=== PATIENT | female | born 1985 | race African-American/Black ===

== ENCOUNTER 2017-10-03 22:37 | Emergency (ER) | payer SELFPAY ==
[~2017-10-03] VITALS: Ht 165.1 cm; Wt 145.6 kg
[~2017-10-03 22:37] MED LIST: CEPH-460 PO; FERR325T18 PO; HYDR-4107 PO; PERC5TAB12 PO; POTASOL PO
[2017-10-03 23:23] VITALS: BP 162/100; PULSE 94; RESP 18; TEMP 98.9; O2SAT 97
--- NOTE | 2017-10-03 23:37 | PD ---
HPI Chief Complaint: Complaint Time Seen by Provider: 23:31 Travel History International Travel<30 days: No Contact w/Intl Traveler<30days: No Traveled to known affect area: No History of Present Illness HPI 32-year-old female presents to the emergency department for complaint of flank pain and suprapubic pressure with decreased urine output. Patient has history of recurrent kidney stones requiring stent placement and reportedly saw her urologist located in [place] on Monday and had bilateral stents placed but reports that both of the stents fell out and home. Patient reportedly contacted her urologist who encouraged her to come to the emergency department. Patient reportedly is scheduled to have surgery on Monday in [place] but was told that as long as she has a urine infection she cannot have the urological procedural intervention. No reported fever and chills. No report of nausea or vomiting. Patient has had dysuria and decreased urine output. No report of hematuria. Patient's last period was April 2015. Patient denies . Patient reports she has a very complicated extensive history related to recurrent kidney stones with complications from urinary stents requiring hospitalization for sepsis subsequent complication with PE and bilateral pneumothoraces. Patient's last diagnosis of PE was in 2012 and she takes no blood thinning agents at this time. Patient reports last dose of pain medication yesterday, hydrocodone. PFSH Past Medical History Narrative Medical Kidney stones UTI urosepsis pneumothorax PE recurrent ureteral stents D&C ovarian; no tobacco use; nursing notes reviewed Anemia: Yes Diminished Hearing: No Deep Vein Thrombosis: Yes (with pulmonary embolism) Kidney Stones: Yes Respiratory: Yes (BILATERAL LUNG COLLAPSE) Ovarian Cysts: Yes Dilation and Curettage (D&C): Yes Past Surgical History Gynecologic Surgery: Yes (HX: OVARIAN CYSTS, UTERINE POLYS) Other Surgery: Yes (bilateral ureteral stents; lithotripsy) Social History Alcohol Use: No Tobacco Use: No Substance Use: No Allergies-Medications (Allergen,Severity, Reaction): Coded Allergies: morphine (Verified Allergy, Intermediate, HIVES, 09/26/17) diclofenac (Unverified Allergy, Unknown, 06/18/17) Renal dysfunction etodolac (Unverified Allergy, Unknown, 06/18/17) Renal dysfunction flurbiprofen (Unverified Allergy, Unknown, 06/18/17) Renal dysfunction ibuprofen (Unverified Allergy, Unknown, 06/18/17) Renal dysfunction indomethacin (Unverified Allergy, Unknown, 06/18/17) Renal dysfunction ketoprofen (Unverified Allergy, Unknown, 06/18/17) Renal dysfunction ketorolac (Unverified Allergy, Unknown, 06/18/17) Renal dysfunction naproxen (Unverified Allergy, Unknown, 06/18/17) Renal dysfunction oxaprozin (Unverified Allergy, Unknown, 06/18/17) Renal dysfunction tramadol (Unverified Allergy, Unknown, Renal dysfunction, 06/18/17) Reported Meds & Prescriptions Reported Meds & Active Scripts Active Reported Ferrous Sulfate 325 Mg (65 Mg Iron) Tablet 325 Mg PO DAILY Potassium Citrate-Citric Acid 1,100-334 Mg/5 Ml Soln 15 Ml PO DAILY Review of Systems Except as stated in HPI: all other systems reviewed are Neg General / Constitutional: No: Fever, Chills HENT: No: Congestion Cardiovascular: No: Chest Pain or Discomfort Respiratory: No: Shortness of Breath Gastrointestinal: Positive: Nausea, No: Abdominal Pain Genitourinary: Positive: Dysuria, Flank Pain Musculoskeletal: No: Myalgias, Arthralgias Skin: No Rash Neurologic: No: Weakness Hematologic/Lymphatic: No: Lymph Node Enlargement Physical Exam Narrative GENERAL: Well-developed well-nourished obese female in no acute distress or respiratory distress SKIN: Warm and dry. HEAD: Normocephalic. EYES: No scleral icterus. No injection or drainage. NECK: Supple, trachea midline. No JVD or lymphadenopathy. CARDIOVASCULAR: Regular rate and rhythm without murmurs, gallops, or rubs. RESPIRATORY: Breath sounds equal bilaterally. No accessory muscle use. GASTROINTESTINAL: Abdomen soft, non-tender, nondistended. MUSCULOSKELETAL: No cyanosis, or edema. BACK: Nontender without obvious deformity. No CVA tenderness. Data Data Last Documented VS Vital Signs Date Time Temp Pulse Resp B/P (MAP) Pulse Ox O2 Delivery O2 Flow Rate FiO2 10/03/17 23:23 98.9 94 18 162/100 (120) 97 Orders Orders Complete Blood Count With Diff (10/03/17 23:37) Comprehensive Metabolic Panel (10/03/17 23:37) Urinalysis - C+S If Indicated (10/03/17 23:37) Ed Urine Pregnancytest Poc (10/03/17 23:37) Ct Abd/Pel W/O Iv Contrast (10/03/17 23:37) Ecg Monitoring (10/03/17 23:37) Iv Access Insert/Monitor (10/03/17 23:37) Sodium Chloride 0.9% Flush (Ns Flush) (10/03/17 23:45) Urine Culture (10/03/17 23:48) Ceftriaxone Inj (Rocephin Inj) (10/04/17 00:45) Ondansetron Inj (Zofran Inj) (10/04/17 00:45) Hydromorphone Pf Inj (Dilaudid Pf Inj) (10/04/17 01:00) Labs Laboratory Tests Test 10/03/17 23:48 10/04/17 00:32 Urine Color YELLOW Urine Turbidity SL CLOUDY Urine pH 7.0 Urine Specific [place] 1.015 Urine Protein 100 mg/dL Urine Glucose (UA) NEG mg/dL Urine Ketones NEG mg/dL Urine Occult Blood TRACE Urine Nitrite NEG Urine Bilirubin NEG Urine Urobilinogen 0.2 MG/DL Urine Leukocyte Esterase SMALL Urine RBC 0-3 /hpf Urine WBC 15-19 /hpf Urine WBC Clumps FEW Urine Squamous Epithelial Cells 0-5 /hpf Urine Bacteria OCC /hpf Urine Mucus OCC /lpf Microscopic Urinalysis Comment CULTURE INDICATED White Blood Count 9.0 TH/MM3 Red Blood Count 5.47 MIL/MM3 Hemoglobin 11.6 GM/DL Hematocrit 37.2 % Mean Corpuscular Volume 68.0 FL Mean Corpuscular Hemoglobin 21.1 PG Mean Corpuscular Hemoglobin Concent 31.1 % Red Cell Distribution Width 22.2 % Platelet Count 339 TH/MM3 Mean Platelet Volume 8.0 FL Neutrophils (%) (Auto) 67.6 % Lymphocytes (%) (Auto) 20.3 % Monocytes (%) (Auto) 7.6 % Eosinophils (%) (Auto) 3.9 % Basophils (%) (Auto) 0.6 % Neutrophils # (Auto) 6.1 TH/MM3 Lymphocytes # (Auto) 1.8 TH/MM3 Monocytes # (Auto) 0.7 TH/MM3 Eosinophils # (Auto) 0.3 TH/MM3 Basophils # (Auto) 0.1 TH/MM3 CBC Comment AUTO DIFF Differential Comment AUTO DIFF CONFIRMED Platelet Estimate NORMAL Platelet Morphology Comment NORMAL Basophilic Stippling FAINT Blood Urea Nitrogen 12 MG/DL Creatinine 1.00 MG/DL Random Glucose 127 MG/DL Total Protein 8.2 GM/DL Albumin 3.2 GM/DL Calcium Level 9.1 MG/DL Alkaline Phosphatase 74 U/L Aspartate Amino Transf (AST/SGOT) 22 U/L Alanine Aminotransferase (ALT/SGPT) 15 U/L Total Bilirubin 0.2 MG/DL Sodium Level 140 MEQ/L Potassium Level 4.1 MEQ/L Chloride Level 105 MEQ/L Carbon Dioxide Level 26.7 MEQ/L Anion Gap 8 MEQ/L Estimat Glomerular Filtration Rate 77 ML/MIN MDM Medical Decision Making Medical Screen Exam Complete: Yes Emergency Medical Condition: Yes Medical Record Reviewed: Yes Interpretation(s) Last Impressions Abdomen/Pelvis CT 10/03/17 1477 Signed Impressions: Service Date/Time: Tuesday, October 03, 2017 23:58 - CONCLUSION: 1. Bilateral nonobstructing renal calculi. Largest stone is on the right measuring 1 cm. 2. 3.4 cm left adnexal cyst likely ovarian in nature. 3. No acute abnormality. Todd Martinez Jr., MD CBC & BMP Diagram 10/04/17 00:32 Total Protein 8.2, Albumin 3.2 L, Calcium Level 9.1, Alkaline Phosphatase 74, Aspartate Amino Transf (AST/SGOT) 22, Alanine Aminotransferase (ALT/SGPT) 15, Total Bilirubin 0.2 Vital Signs Date Time Temp Pulse Resp B/P (MAP) Pulse Ox O2 Delivery O2 Flow Rate FiO2 10/03/17 23:23 98.9 94 18 162/100 (120) 97 Differential Diagnosis Renal colic, UTI, obstructive uropathy Narrative Course IV access obtained specimens collected and sent for resulting Patient able to urinate to provide urine specimen Urinalysis white blood cells and few bacteria culture indicated patient does have otherwise normal labs and [id number] hCG is negative CT abdomen and pelvis reveals no evidence of hydronephrosis or hydroureter and no inflammatory stranding around the kidneys. Patient does have bilateral nephrolithiasis but no obstructive process. Patient asking for narcotic pain medication given one-time dose of Dilaudid and given IV antibiotic coverage for UTI. She will be discharged with prescription for Cipro and encouraged to follow-up with her urologist. Patient is stable for outpatient management. Diagnosis Primary Impression: UTI (urinary tract infection) Additional Impression: Bilateral nephrolithiasis Referrals: Primary Care Physician 2 days Urologist call for appointment Patient Instructions: General Instructions, Narcotic given in the ED Additional Instructions: Increase fluid hydration Follow-up with your primary care provider and your urologist Complete course of antibiotic as prescribed Return to the emergency department for any concerns or change in condition Med/Other Pt SpecificInfo: Prescription(s) given Scripts Ciprofloxacin (Cipro) 500 Mg Tab 500 MG PO BID for Infection for 10 Days, #20 TAB 0 Refills Prov: Bita Knox MD 10/04/17 Disposition: 01 DISCHARGE HOME Condition: Stable Bita Knox MD Oct 03, 2017 23:37
[2017-10-03] MEDS ORDERED: SODIUM CHLORIDE 0.9% FLUSH 10 ML FLUSH IVF PRN (23:45)
[2017-10-04 00:14] LABS: BILIRUBIN, URINE NEG (NEG); BLOOD, URINE TRACE (NEG); GLUCOSE,URINE NEG (NEG); KETONE, URINE NEG (NEG); NITRITE,URINE NEG (NEG); URINE COLOR YELLOW (YELLW/STRAW); URINE LEUKOCYTE ESTERASE SMALL (NEG)
[2017-10-04 00:24] LABS: BACTERIA, URINE OCC /hpf; RBC, URINE 0-3 /hpf (0-3); SQUAMOUS EPITHELIAL CELL URINE 0-5 /hpf (0-5); WBC, URINE 15-19 /hpf (0-5)
[2017-10-04 00:25] LABS: MUCUS URINE OCC /lpf (OCC); WHITE BLOOD CELL CLUMPS FEW
--- NOTE | 2017-10-04 00:26 | RADRPT ---
EXAM DATE/TIME: 10/03/2017 23:58 [facility] COMPARISON: No previous studies available for comparison. INDICATIONS : Abdomen pain. Unable to urinate. History of renal stones. ORAL CONTRAST: No oral contrast ingested. RADIATION DOSE: 31.73 CTDIvol (mGy) ; Patient body habitus MEDICAL HISTORY : Renal calculi. Deep venous thrombosis. SURGICAL HISTORY : Non-responsive. Ureteral stents Lithrotripsy ENCOUNTER: Initial ACUITY: 1 day PAIN SCALE: 6/10 LOCATION: Bilateral flank TECHNIQUE: Volumetric scanning of the abdomen and pelvis was performed. Using automated exposure control and ad justment of the mA and/or kV according to patient size, radiation dose was kept as low as reasonably achievable to obtain optimal diagnostic quality images. DICOM format image data is available electro nically for review and comparison. FINDINGS: LOWER LUNGS: Scarring within the right middle lobe and lingula. LIVER: Homogeneous density without lesion. There is no dilation of the biliary tree. No calcified gallston es. SPLEEN: Normal size without lesion. PANCREAS: Within normal limits. KIDNEYS: Normal in size and shape. There is no mass or hydronephrosis. Bilateral renal calculi which are nono bstructing. 2 stones are seen on the right with the largest measuring 1 cm within the upper pole. 3 s tones are seen on the left. The largest involves the upper pole and measures 6 mm. No perinephric str anding or fluid collections. ADRENAL GLANDS: Within normal limits. VASCULAR: There is no aortic aneurysm. BOWEL/MESENTERY: The stomach, small bowel, and colon demonstrate no acute abnormality. There is no free intraperitone al air or fluid. ABDOMINAL WALL: Within normal limits. RETROPERITONEUM: There is no lymphadenopathy. BLADDER: No wall thickening or mass. REPRODUCTIVE: 3.4 cm cyst is seen within the left adnexa. Hounsfield units are -2. INGUINAL: There is no lymphadenopathy or hernia. MUSCULOSKELETAL: Within normal limits for patient age. CONCLUSION: 1. Bilateral nonobstructing renal calculi. Largest stone is on the right measuring 1 cm. 2. 3.4 cm left adnexal cyst likely ovarian in nature. 3. No acute abnormality. Todd Martinez Jr., MD on October 04, 2017 at 0:20 Board Certified Radiologist. This report was verified electronically.
[2017-10-04 00:38] LABS: AUTOMATED NEUTROPHIL # 6.1 TH/MM3 (1.8-7.7); BASOPHIL # 0.1 TH/MM3 (0-0.2); BASOPHIL % 0.6 % (0.0-2.0); EOSINOPHIL # 0.3 TH/MM3 (0-0.4); EOSINOPHIL % 3.9 % (0.0-4.0); HEMATOCRIT 37.2 % (35.0-46.0); HEMOGLOBIN 11.6 GM/DL (11.6-15.3); LYMPH % 20.3 % (9.0-44.0); LYMPHOCYTE # 1.8 TH/MM3 (1.0-4.8); MEAN CORPUSCULAR HEMOGLOBIN 21.1 PG (27.0-34.0); MEAN CORPUSCULAR HGB CONC 31.1 % (32.0-36.0); MONO % 7.6 % (0.0-8.0); MONOCYTE # 0.7 TH/MM3 (0-0.9); NEUT % 67.6 % (16.0-70.0); PLATELET COUNT 339 TH/MM3 (150-450); RED BLOOD COUNT 5.47 MIL/MM3 (4.00-5.30); RED CELL DISTRIBUTION WIDTH 22.2 % (11.6-17.2)
[2017-10-04] MEDS ORDERED: cefTRIAXone INJ 1,000 MG in SODIUM CHLORIDE 0.9% INJ 100 ML IV ONE (00:45)
[2017-10-04] MEDS ORDERED: ONDANSETRON HCL 4 MG/2 ML VIAL IV PUSH ONE (00:45)
[2017-10-04 00:53] LABS: CHLORIDE 105 MEQ/L (98-107); SODIUM (NA) 140 MEQ/L (136-145)
[2017-10-04 00:56] LABS: CALCIUM 9.1 MG/DL (8.5-10.1)
[2017-10-04 00:57] LABS: ALBUMIN 3.2 GM/DL (3.4-5.0); BICARBONATE 26.7 MEQ/L (21.0-32.0); BLOOD UREA NITROGEN 12 MG/DL (7-18); GLUCOSE,RANDOM 127 MG/DL (74-106)
[2017-10-04 01:00] LABS: ALT (GPT) 15 U/L (10-53); AST (GOT) 22 U/L (15-37); GLOMERULAR FILTRATION RATE 77 ML/MIN (>89)
[2017-10-04] MEDS ORDERED: HYDROmorphone HCL PF 2 MG/ML VIAL IV PUSH ONE (01:00)
[2017-10-04 01:01] LABS: TOTAL BILIRUBIN ADULT 0.2 MG/DL (0.2-1.0); TOTAL PROTEIN 8.2 GM/DL (6.4-8.2)
[2017-10-04 01:03] LABS: ALKALINE PHOSPHATASE 74 U/L (45-117)
[2017-10-04] MEDS ORDERED: CIPR-9 PO (01:29)
[2017-10-04 01:38] VITALS: BP 159/78
== END 2017-10-04 02:03 | disposition home or self-care (01) ==
LOC: PHED 22:37
DX: N39.0 Urinary tract infection, site not specified (principal); N20.0 Calculus of kidney; D64.9 Anemia, unspecified; B96.89 Other specified bacterial agents as the cause of diseases classified elsewhere; Z87.442 Personal history of urinary calculi
CPT/HCPCS: 74176; 80053; 81001; 84703; 85025; 87086; 96365; 96375; 99284; J0696; J1170; J2405

== ENCOUNTER 2018-03-29 23:00 | Observation (INO) ==
[2018-03-30] MEDS ORDERED: Bisacodyl 10 MG Supp RECTAL PRN (03:50)
[2018-03-30] MEDS ORDERED: Acetaminophen 325 MG Tablet PO PRN (03:50)
[2018-03-30] MEDS: Sod Chloride 0.9% Inj 1,000 ML IV.CONT SCH ×2 (05:46→17:46)
--- NOTE | 2018-03-30 09:40 | CT ---
EXAM DATE: 03/30/2018 9:27 AM EDT AGE/SEX: 32 years / Female INDICATIONS: Bilateral flank pain. CLINICAL DATA: This is the patient's initial encounter. Patient reports that signs and symptoms have been present for 1 week and indicates a pain score of 9/10. MEDICAL/SURGICAL HISTORY: Renal calculi. Ovarian cyst. Pulmonary emboli. Sepsis. Frequent urina ry tract infections. Pyelonephritis. Lithotripsy. Cystoscopy. Dilation and curettage. Laparoscopy. RADIATION DOSE: 24.99 CTDI (mGy) ; Patient body habitus COMPARISON: [facility] [place], CT ABDOMEN & PELVIS W CONTRAST, 01/31/2018. . TECHNIQUE: Multiple contiguous axial images were obtained through the abdomen. Images were obtained using multiple row detector helical technique. Using automated exposure control and adjustment of the mA and/or kV according to patient size, radiation dose was kept as low as reasonably achievable to o btain optimal diagnostic quality images. DICOM format image data is available electronically for rev iew and comparison. FINDINGS: Minimal bibasilar parenchymal changes. Liver and gallbladder unremarkable Spleen and pancreas appear normal Adrenal glands appear normal Right kidney: Right kidney is normal size irregular shaped with 2 small 1 mm calcifications present. There are no calcifications along the expected course of the right ureter. Left kidney: Left kidney is normal size but irregular shaped with 2 small 1 mm calcifications present . Again there are no calcifications along the expected course of the left ureter. Cecum, descending, transverse and descending colon appear normal Sigmoid colon pelvis is unremarkable 3.5 cm cystic mass left adnexa region. There is no free fluid Bladder unremarkable. Abdominal wall intact. CONCLUSION: 1. Small bilateral renal stones. Kidneys are irregular shaped suggesting repeated inflammatory insul t 2. 3.5 similar cystic mass left adnexa region stable from comparison study. 3. Patient has had multiple CT scans including 5 this year. 4. Ultrasound could be used to exclude hydronephrosis in this patient with known renal stones. Electronically signed by: Garrett Kinney MD 03/30/2018 9:39 AM EDT
--- NOTE | 2018-03-30 10:15 | P.HP ---
History of Present Illness Primary Care Physician: Preston Martinez Chief Complaint: Abdominal pain History of Present Illness: 32-year-old female with known history of renal lithiasis, recurrent urinary tract infections who presented to the hospital because of worsening pain in her back and abdomen. Patient indicates that she started developing a urinary tract infection again last week. She went to her prior medical doctor's office on Monday and was started on Bactrim. Patient states that she did not get any better and then developed sudden onset of yesterday so she went to the emergency department for evaluation. Workup was relatively unremarkable. Patient does have CVA tenderness. Urinalysis did indicate significant hematuria as well as urinary tract infection. CT scan did not indicate any obstructive process, it was recommended by the ER physician that the patient be admitted for failed outpatient treatment for urinary tract infection. Patient denies any fever, chills. She does indicate painful and frequent urination with bilateral back pain. - Diagnosis (1) Urinary tract infection (2) Failure of outpatient treatment Review of Systems All other systems reviewed negative except as stated in HPI Genitourinary: Reports painful urination, Reports urinary urgency Musculoskeletal: Reports back pain PMFSH - History History Provided By: Patient - Medical History Medical History: Medical History (Last Reviewed 03/30/18 @ 10:12 by DREW Bauer) Sepsis (Acute) Kidney stones (Acute) History of frequent urinary tract infections (Acute) Kidney stone Ovarian cyst Pulmonary emboli - Surgical History Surgical History: Surgical History (Last Reviewed 03/30/18 @ 10:12 by DREW Bauer) H/O lithotripsy (Acute) H/O cystoscopy H/O dilation and curettage H/O laparoscopy - Family History Family History: Family History (Last Updated 03/30/18 @ 10:07 by DREW Bauer) Other No pertinent family history - Tobacco History Second Hand Smoke Exposure: No Smoking Status: Never smoker - Alcohol History How Often Do You Have a Drink Containing Alcohol: Never - Substance Use History Substance History: No History of Abuse Medications and Allergies Active Medications: Active Medications Acetaminophen (Tylenol) 650 mg PO Q4H PRN PRN Reason: Temp > 100.4 Bisacodyl (Dulcolax Supp) 10 mg RECTAL DAILY PRN PRN Reason: SEVERE CONSITIPATION Sodium Chloride (Ns Inj) 1,000 mls @ 100 mls/hr IV.CONT .Q10H [facility] Last Admin: 03/30/18 05:46 Dose: 100 mls/hr Ceftriaxone Sodium 1,000 mg/ (Sodium Chloride) 100 mls @ 200 mls/hr IV.SIG Q24H [facility] Last Infusion: 03/30/18 06:43 Dose: Infused Ondansetron HCl (Zofran Inj) 4 mg IV.PUSH Q6H PRN PRN Reason: NAUSEA OR VOMITING Last Admin: 03/30/18 05:44 Dose: 4 mg Oxycodone/Acetaminophen (Percocet 5/325 Mg) 1 tab PO Q4H PRN PRN Reason: pain > 4 Last Admin: 03/30/18 09:33 Dose: 1 tab Sennosides (Senokot) 17.2 mg PO Q12H PRN PRN Reason: Moderate Constipation Allergies Allergy/AdvReac Type Severity Reaction Status Date / Time morphine Allergy Severe HIVES Verified 01/07/18 00:46 diclofenac Allergy Unknown Renal Verified 01/24/18 04:18 dysfunction etodolac Allergy Unknown Renal Verified 01/24/18 04:18 dysfunction flurbiprofen Allergy Unknown Renal Verified 01/24/18 04:18 dysfunction ibuprofen Allergy Unknown Renal Verified 01/24/18 04:18 dysfunction indomethacin Allergy Unknown Renal Verified 01/24/18 04:18 dysfunction ketoprofen Allergy Unknown Renal Verified 01/24/18 04:18 dysfunction ketorolac Allergy Unknown Renal Verified 01/24/18 04:18 dysfunction naproxen Allergy Unknown Renal Verified 01/24/18 04:18 dysfunction oxaprozin Allergy Unknown Renal Verified 01/24/18 04:18 dysfunction tramadol Allergy Unknown Renal Verified 01/24/18 04:18 dysfunction Home Medications Medication Instructions Recorded Confirmed Type ferrous sulfate [Iron (ferrous 325 mg PO TID 01/31/18 03/29/18 History sulfate)] potassium citrate 15 mg PO TID MDD 3 01/31/18 03/29/18 History Exam Vital signs: Vital Signs 03/30/18 04:00 Temperature 98.1 F Pulse Rate 96 H Respiratory Rate 16 Blood Pressure 132/74 Pulse Oximetry 95 Intake & Output 03/29/18 03/30/18 03/30/18 18:59 06:59 18:59 Intake Total 100 / 100 Balance 100 / 100 Weight 138.9 kg Intake: IV 100 / 100 Rocephin Inj 1,000 MG In NS Inj 100 / 100 100 ML @ 200 mls/hr IV.SIG Q24H [facility] Rx#:[id number] Other: # Voids 2 Weight On Admission 138.9 kg Narrative: GENERAL: Well-developed, morbidly obese, in no acute distress. alert and orientated HEENT: Head is normocephalic without any lesions or masses noted. Facial features are symmetric. Eyes: Pupils equal round reactive to light. Extraocular muscles are intact. Conjunctivae were clear. Oropharyngeal: Pharynx without any erythema edema. Tongue is midline without deviation. Buccal mucosa is moist without any masses or lesions NECK: Supple without any masses. Trachea midline no deviation. No JVD, no bruits are appreciated CARDIAC: Regular rhythm, regular rate. S1/S2 are heard. No murmurs gallops or rubs. LUNGS: Clear to auscultation bilaterally. No wheeze, rhonchi or rales. No use of accessory muscles on inspiration or expiration. ABDOMEN: Soft, nontender. Nondistended. Bowel sounds heard in all 4 quadrants. No organomegaly or masses. Negative rebound, negative guarding. Positive CVA tenderness EXTREMITIES: No edema, pulses are equal bilaterally. No cyanosis or clubbing NEUROLOGY: Mood and affect appear appropriate. Cranial nerves II through XII grossly intact. Muscle strength 5/5 in upper and lower extremities bilaterally. Deep tendon reflexes are 2+ in upper and lower extremities bilaterally. Results - Labs Labs: Laboratory Results - last 24 hr 03/30/18 05:03 Beta HCG, Qual Less than 1.00 - Imaging Impressions Abdomen/Pelvis CT 03/30/18 00:00 CONCLUSION: 1. Small bilateral renal stones. Kidneys are irregular shaped suggesting repeated inflammatory insult 2. 3.5 similar cystic mass left adnexa region stable from comparison study. 3. Patient has had multiple CT scans including 5 this year. 4. Ultrasound could be used to exclude hydronephrosis in this patient with known renal stones. Caprini VTE Risk Assessment Caprini VTE Risk Assessment: Moderate/High Risk (score >= 2) Caprini Risk Assessment Model: Point Value = 1 Point Value = 2 Point Value = 3 Point Value = 5 Age 41-60 Minor surgery BMI > 25 kg/m2 Swollen legs Varicose veins or History of unexplained or recurrent spontaneous Oral contraceptives or hormone replacement Sepsis (< 1 month) Serious lung disease, including pneumonia (< 1 month) Abnormal pulmonary function Acute myocardial infarction Congestive heart failure (< 1 month) History of inflammatory bowel disease Medical patient at bed rest Age 61-74 Arthroscopic surgery Major open surgery (> 45 min) Laparoscopic surgery (> 45 min) Malignancy Confined to bed (> 72 hours) Immobilizing plaster cast Central venous access Age >= 75 History of VTE Family history of VTE Factor V Leiden Prothrombin [id number] Lupus anticoagulant Anticardiolipin antibodies Elevated serum homocysteine Heparin-induced thrombocytopenia Other congenital or acquired thrombophilia Stroke (< 1 month) Elective arthroplasty Hip, pelvis, or leg fracture Acute spinal cord injury (< 1 month) Prophylaxis Regimen: Total Risk Factor Score Risk Level Prophylaxis Regimen 0-1 Low Early ambulation 2 Moderate Order ONE of the following: *Sequential Compression Device (SCD) *Heparin 5000 units SQ BID 3-4 Higher Order ONE of the following medications: *Heparin 5000 units SQ TID *Enoxaparin/Lovenox 40 mg SQ daily (WT < 150 kg, CrCl > 30 mL/min) *Enoxaparin/Lovenox 30 mg SQ daily (WT < 150 kg, CrCl > 10-29 mL/min) *Enoxaparin/Lovenox 30 mg SQ BID (WT < 150 kg, CrCl > 30 mL/min) AND/OR *Sequential Compression Device (SCD) 5 or more Highest Order ONE of the following medications: *Heparin 5000 units SQ TID (Preferred with Epidurals) *Enoxaparin/Lovenox 40 mg SQ daily (WT < 150 kg, CrCl > 30 mL/min) *Enoxaparin/Lovenox 30 mg SQ daily (WT < 150 kg, CrCl > 10-29 mL/min) *Enoxaparin/Lovenox 30 mg SQ BID (WT < 150 kg, CrCl > 30 mL/min) AND *Sequential Compression Device (SCD) Assessment and Plan - Assessment (1) Urinary tract infection Code(s): N39.0 - Urinary tract infection, site not specified Status: Acute (2) Failure of outpatient treatment Code(s): Z78.9 - Other specified health status Status: Acute - Plan Urinary tract infection, failed outpatient treatment -Await urine culture for appropriate antibiotics -Continue Rocephin History of kidney stones with hematuria and acute onset back pain -CT scan does not indicate any obstructive process. Does show bilateral renal calculi, radiologist recommending ultrasound for further evaluation -Renal bladder ultrasound did not indicate any abnormality. Nonobstructing renal calculi seen. No obstructive process DVT prevention -Sequential compression devices
--- NOTE | 2018-03-30 14:26 | US ---
EXAM DATE: 03/30/2018 2:20 PM EDT AGE/SEX: 32 years / Female INDICATIONS: Kidney stones. Abnormal CT. CLINICAL DATA: This is the patient's subsequent encounter. Patient reports that signs and symptoms h ave been present for 2 days and indicates a pain score of 3/10. MEDICAL/SURGICAL HISTORY: . UTI. Kidney stones. Ovarian cysts. Pulmonary embolism. . Cystosco py. Dilation and curettage. Laparoscopy. Lithotripsy. COMPARISON: [facility], CT ABDOMEN & PELVIS W/O CONTRAST, 03/30/2018. . MEASUREMENTS: Right Kidney:__10.6 x 4.5 x 4.0 cm Left Kidney:__11.8 x 5.0 x 4.1 cm FINDINGS: Right Kidney: Normal echotexture and cortical thickness. Nearly punctate echogenic foci near the supe rior pole corresponding to nonobstructing calyceal calculi on recent CT exam. No mass or hydronephros is. Left Kidney: Normal echotexture and cortical thickness. Small echogenic foci measuring up to 3 mm in the inferior pole corresponding to nonobstructing calyceal calculi and recent exam. No mass or hydron ephrosis. Bladder: Within normal limits given the degree of distension. Other: None. CONCLUSION: 1. Redemonstration of small bilateral nonobstructing renal calyceal calculi. 2. No evidence for obstructive uropathy. Electronically signed by: Manjinder Lin MD 03/30/2018 2:25 PM EDT
[2018-03-31] MEDS: Sod Chloride 0.9% Inj 1,000 ML IV.CONT SCH ×2 (03:51→09:22)
[2018-03-31 07:18] LABS: Baso % (Auto) 0.7 % (0.0-2.0); Eos # (Auto) 0.3 th/mm3 (0.0-0.4); Eos % (Auto) 4.6 % (0.0-4.0); Hematocrit 31.4 % (35.0-46.0); Hemoglobin 10.1 gm/dL (11.6-15.3); Lymph # (Auto) 1.2 th/mm3 (1.0-4.8); Lymph % (Auto) 21.7 % (9.0-44.0); Mean Corpuscular HGB Conc 32.3 % (32.0-36.0); Mean Corpuscular Hemoglobin 21.9 pg (27.0-34.0); Mean Corpuscular Volume 67.8 fL (80.0-100.0); Mean Platelet Volume 8.7 fL (7.0-11.0); Mono # (Auto) 0.4 th/mm3 (0.0-0.9); Mono % (Auto) 7.4 % (0.0-8.0); Neut # (Auto) 3.6 th/mm3 (1.8-7.7); Neut % (Auto) 65.6 % (16.0-70.0); Platelet Count 233 th/mm3 (150-450); Red Blood Count 4.63 mil/mm3 (4.00-5.30); Red Cell Distribution Width 24.2 % (11.6-17.2); White Blood Count 5.5 th/mm3 (4.0-11.0)
[2018-03-31 07:30] LABS: Potassium 3.7 meq/L (3.5-5.1)
[2018-03-31 07:35] LABS: Calcium 7.9 mg/dL (8.5-10.1)
[2018-03-31 07:36] LABS: Carbon Dioxide 25.1 meq/L (21.0-32.0)
[2018-03-31 08:55] LABS: Platelet Estimate Normal (Normal); Platelet Morphology Normal (Normal)
--- NOTE | 2018-03-31 09:41 | P.PN ---
Subjective Interval history: 32-year-old female who is seen and examined today for follow-up on urinary tract infection failing outpatient management. Patient laying in bed comfortably. States that she is feeling a little bit better.. Discussed with the patient that we are waiting final culture for appropriate antibiotics. Patient does understand Physical Exam Vital signs: Vital Signs 03/30/18 12:00 03/30/18 14:14 03/30/18 17:47 Temperature 98.8 F Pulse Rate 91 H Respiratory Rate 15 20 20 Blood Pressure 155/86 H Pulse Oximetry 96 03/30/18 20:00 03/31/18 00:00 03/31/18 07:41 Temperature 99.2 F 98.2 F 97.8 F Pulse Rate 95 H 95 H 98 H Respiratory Rate 16 16 20 Blood Pressure 173/80 H 136/65 160/80 H Pulse Oximetry 95 94 L 94 L Intake & Output 03/30/18 03/31/18 03/31/18 18:59 06:59 18:59 Intake Total 1000 / 1000 1100 / 1100 Balance 1000 / 1000 1100 / 1100 Weight 141.2 kg Intake: IV 1000 / 1000 1100 / 1100 NS Inj 1,000 ML @ 100 mls/hr IV 1000 / 1000 1000 / 1000 .CONT .Q10H [facility] Rx#:[id number] Rocephin Inj 1,000 MG In NS Inj 100 / 100 100 ML @ 200 mls/hr IV.SIG Q24H [facility] Rx#:[id number] Other: # Voids 2 5 Narrative: GENERAL: Well-developed, morbidly obese, in no acute distress. alert and orientated HEENT: Head is normocephalic without any lesions or masses noted. Facial features are symmetric. Eyes: Extraocular muscles are intact. Conjunctivae were clear. NECK: Supple without any masses. Trachea midline no deviation. No JVD, CARDIAC: Regular rhythm, regular rate. S1/S2 are heard. No murmurs gallops or rubs. LUNGS: Clear to auscultation bilaterally. No wheeze, rhonchi or rales. No use of accessory muscles on inspiration or expiration. ABDOMEN: Soft, nontender. Nondistended. Bowel sounds heard in all 4 quadrants. No organomegaly or masses. Negative rebound, negative guarding EXTREMITIES: No edema, pulses are equal bilaterally. No cyanosis or clubbing NEUROLOGY: Mood and affect appear appropriate. Cranial nerves II through XII grossly intact. Moving all extremities, speech is clear Results - Labs CBC & Chem 7: 03/31/18 07:00 03/31/18 07:00 Laboratory Results - last 24 hr 03/31/18 03/31/18 07:00 07:00 CBC w Diff Slide review pending WBC 5.5 RBC 4.63 Hgb 10.1 L Hct 31.4 L MCV 67.8 L MCH 21.9 L MCHC 32.3 RDW 24.2 H Plt Count 233 MPV 8.7 Neut % (Auto) 65.6 Lymph % (Auto) 21.7 [place] % (Auto) 7.4 Eos % (Auto) 4.6 H Baso % (Auto) 0.7 Neut # (Auto) 3.6 Lymph # (Auto) 1.2 [place] # (Auto) 0.4 Eos # (Auto) 0.3 Baso # (Auto) 0.0 WBC Differential . Diff Scan Auto diff confirmed Differential Comment . Platelet Estimate Normal Platelet Morphology Normal Sodium 141 Potassium 3.7 Chloride 107 Carbon Dioxide 25.1 Anion Gap 9 BUN 10 Creatinine 1.00 Estimated GFR 77 L Random Glucose 145 H Calcium 7.9 L D - Imaging Impressions Abdomen/Pelvis CT 03/30/18 00:00 CONCLUSION: 1. Small bilateral renal stones. Kidneys are irregular shaped suggesting repeated inflammatory insult 2. 3.5 similar cystic mass left adnexa region stable from comparison study. 3. Patient has had multiple CT scans including 5 this year. 4. Ultrasound could be used to exclude hydronephrosis in this patient with known renal stones. Abdomen/Bladder Ultrasound 03/30/18 10:03 CONCLUSION: 1. Redemonstration of small bilateral nonobstructing renal calyceal calculi. 2. No evidence for obstructive uropathy. Assessment and Plan - Assessment (1) Urinary tract infection Code(s): N39.0 - Urinary tract infection, site not specified Status: Acute (2) Failure of outpatient treatment Code(s): Z78.9 - Other specified health status Status: Inactive - Plan Urinary tract infection, failed outpatient treatment -Urine culture shows 50-100,000 colonies of mixed myra -Patient indicates that her medical doctor notified her that she had infection with Klebsiella pneumonia -Continue Rocephin History of kidney stones with hematuria and acute onset back pain -CT scan does not indicate any obstructive process. Does show bilateral renal calculi, radiologist recommending ultrasound for further evaluation -Renal bladder ultrasound did not indicate any abnormality. Nonobstructing renal calculi seen. No obstructive process Elevated blood pressure -Start Norvasc 5 mg daily DVT prevention -Sequential compression devices Discharge Planning: Discharge home in stable condition Activity: Ad henry. Diet: Healthy heart diet Medication per medication reconciliation Follow-up with primary medical doctor in 1 week
[2018-03-31] MEDS ORDERED: amLODIPine 5 MG Tablet PO SCH (10:00)
[2018-03-31] MEDS ORDERED: amLODIPine 5 MG Tablet PO ONE (14:08)
[2018-04-01] MEDS ORDERED: amLODIPine 10 MG Tablet PO SCH (09:00)
== END 2018-03-31 15:46 | disposition home or self-care (01) ==
LOC: PH3 23:00 → PHEDDLT 23:00
PROVIDERS: ADMIT Hospitalist; ATTEND Hospitalist